=== PATIENT | male | born 1980 | race Caucasian/White ===

== ENCOUNTER → 2020-05-21 13:32 | Outpatient (CLI) | payer OTHER, SELFPAY ==
--- NOTE | 2020-05-21 | DI.RAD.S_ITS ---
PROCEDURE: FL SHOULDER INJECTION MR/CT LT INDICATIONS: LEFT SHOULDER PAIN COMPARISON: None. TECHNIQUE: The indications, alternatives, benefits, risks, and complications of the procedure were explained to the patient. Written informed consent was obtained and placed in the chart. The shoulder was examined fluoroscopically and a site for needle placement chosen for entry into the glenohumeral joint from an anterior approach. The skin was prepped and draped in a sterile fashion, and 1% lidocaine infiltrated from skin down to joint capsule. A spinal needle was inserted into the glenohumeral joint, and a small amount of iodinated contrast media injected to confirm intra-articular placement of the needle tip. This was followed by approximately 12 mL dilute solution of a gadolinium containing MR contrast agent. The needle was removed and a dressing was applied. The patient was given postprocedural instructions and sent to the MR suite for MR imaging. FINDINGS: A single fluoroscopic spot image demonstrates intra-articular location of injected iodinated contrast. IMPRESSION: Successful fluoroscopically guided administration of dilute Gadolinium solution into the shoulder joint for MR arthrogram. Dictated by: Alexx Resendiz M.D. on 05/21/2020 at 16:43 Approved by: Alexx Resendiz M.D. on 05/21/2020 at 16:43
--- NOTE | 2020-05-21 | DI.MRI.S_ITS ---
PROCEDURE: MR SHOULDER LT W CON INDICATIONS: LEFT SHOULDER PAIN TECHNIQUE: After the administration of 12 mL of dilute intra-articular Gadolinium contrast, oblique coronal T1 and T2 spin echo with fat saturation, oblique sagittal T1 spin echo with and without fat saturation, oblique sagittal T2 fast spin echo with fat saturation, axial T1 spin echo with fat saturation through the shoulder. COMPARISON: [facility], CR, XR SHOULDER 2+ VIEWS LEFT, 03/29/2020, 14:30. FINDINGS: Image quality: Excellent. Rotator cuff: Supraspinatus infraspinatus and teres minor tendons appear intact. Subscapularis tendon appears grossly intact, with mild post-injection related sequela. No atrophy of the rotator cuff muscles. There is geographic edema involving the teres minor muscle for example image 2/8. No discrete focal masslike signal intensity seen in the region of the quadrilateral space although suboptimal evaluation given MR arthrogram protocol. Bones and bursae: No bone marrow contusions or fractures. A possible small reverse Hill-Sachs fracture deformity on image 11/5, image 14/10. Mild glenohumeral degenerative joint disease. Moderate acromioclavicular joint degeneration. Acromion demonstrates conventional anatomy, without an os acromiale. Capsule and soft tissues: Labrum: Ill-defined posterior labral tear is seen, with chronic appearance. There is associated reactive sclerosis and spurring in the posterior glenoid rim. No definite posterior subluxed appearance of the humeral head relative to the glenoid to suggest microinstability. Marked thickening and amorphous intrasubstance signal changes involving the anterior band of the inferior glenohumeral ligament suggestive of sprain which is probably subacute/chronic. Long head of the biceps tendon intact. The rotator interval appears normal, without fibrosis. Coracohumeral ligament intact. IMPRESSION: Subacute versus chronic large posterior labral tear with associated small reverse Hill-Sachs fracture deformity. Developing reactive sclerosis and spurring at the adjacent glenoid rim. Sprain (probably chronic) of the anterior band of the inferior glenohumeral ligament primarily at the glenoid attachment. Diffuse geographic muscle edema involving the teres minor raising the possibility of denervation, myositis, strain or other possibilities. No atrophy is seen. Dictated by: Alexx Resendiz M.D. on 05/21/2020 at 15:38 Approved by: Alexx Resendiz M.D. on 05/21/2020 at 15:49
== END ==
PROVIDERS: Referring Provider Orthopaedic Surgery; Visit Provider Orthopaedic Surgery
DX: M25.512 Pain in left shoulder (principal); M19.012 Primary osteoarthritis, left shoulder; S43.492A Other sprain of left shoulder joint, initial encounter
CPT/HCPCS: 23350; 73222; 77002